=== PATIENT | male | born 1960 | race Caucasian/White ===

== ENCOUNTER 2023-03-09 17:39 | Outpatient (CLI) | payer MEDICAID, SELFPAY | END 2023-03-09 17:40 | disposition home or self-care (01) | LOC: AMB 03-27 03:16 | PROVIDERS: Visit Provider Emergency Medicine Emergency Medical Services | DX: S09.90XA Unspecified injury of head, initial encounter (principal); S49.91XA Unspecified injury of right shoulder and upper arm, initial encounter; V86.69XA Passenger of other special all-terrain or other off-road motor vehicle injured in nontraffic accident, initial encounter; Y92.046 Garden or yard of boarding-house as the place of occurrence of the external cause | CPT/HCPCS: A0425; A0429 ==

== ENCOUNTER 2023-03-09 18:06 | Emergency (ER) | payer MEDICAID, SELFPAY ==
[2023-03-09] VITALS (9 sets, daily range): BP systolic 131–147; BP diastolic 87–104; PULSE 95–114; RESP 14–16; TEMP 36.4; O2SAT 96–99
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
[2023-03-09 18:24] LABS: Basophils Absolute Auto 0.05 K/uL (0.00-0.30); Basophils Percent Auto 0.6 % (0.0-3.0); Eosinophils Absolute Auto 0.04 K/uL (0.00-0.50); Eosinophils Percent Auto 0.5 % (0.0-7.0); Hematocrit 44.8 % (37.0-53.0); Hemoglobin* 15.6 gm/dL (13.5-17.5); Immature Granulocytes Abs Auto 0.02 K/uL (0.00-0.30); Immature Granulocytes Pct Auto 0.2 %; Lymphocytes Absolute Auto 2.75 K/uL (0.90-2.90); Lymphocytes Percent Auto 34.1 % (20-44); Mean Corpuscular HGB Conc 35 gm/dL (32-36); Mean Corpuscular Hemoglobin 33 pg (26-34); Mean Corpuscular Volume 94 fL (80-100); Monocytes Percent Auto 6.5 % (0.0-11.0); Neutrophils Absolute Auto 4.68 K/uL (1.7-7.0); Neutrophils Percent Auto 58.1 % (42.0-72.0); Platelet Count* 314 K/uL (140-440); RDW Coefficient of Variation % 13.5 % (11.5-15.5); Red Blood Count 4.78 m/uL (4.30-5.90); White Blood Count* 8.06 K/uL (4.50-11.00)
[2023-03-09 18:25] LABS: Slide Review Reflex No
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
[2023-03-09 18:32] LABS: Chloride* 106 mmol/L (96-114)
[2023-03-09 18:33] LABS: Potassium* 4.1 mmol/L (3.6-5.1); Sodium* 141 mmol/L (135-149)
--- NOTE | 2023-03-09 18:35 | ED.NURSE ---
Wounds on pt R shoulder and elbow cleaned with gauze, sterile NS and wound cleanser spray.
[2023-03-09 18:36] LABS: Blood Urea Nitrogen* 11 mg/dL (7-30); Carbon Dioxide* 23 mmol/L (20-32); Creatinine* 1.1 mg/dL (0.5-1.5); Estimated Glomerular Filt Rate 77 ml/min; Ethanol* 0.22 % (0.01-0.03)
[2023-03-09 18:37] LABS: Calcium* 9.1 mg/dL (8.4-10.6); Glucose* 89 mg/dL (60-115)
--- NOTE | 2023-03-09 18:48 | ED.NURSE ---
Notable wounds on patient: Right Elbow and Forearm area - approximately [id number] area of multiple superficial abrasions Right side of head - 2 areas of laceration/abrasion. 1st area (inferior) laceration measuring approx 3cmx0.5cm and approx 1cm deep. 2nd area (superior) larger abrasion measuring approx 3.5cmx2.5cm, containing a laceration measuring approx 2cm long within the area of abrasion.
--- NOTE | 2023-03-09 18:50 | ED.NURSE ---
in for FAST exam.
--- NOTE | 2023-03-09 18:59 | ED.NURSE ---
PD in room for legal blood draw.
--- NOTE | 2023-03-09 19:08 | ED.NURSE ---
in room for lac repair with sutures.
--- NOTE | 2023-03-09 19:34 | ED.NURSE ---
Wounds on pt head cleaned with gauze, sterile NS, and wound cleanser spray. Dried blood cleaned off pt head/neck.
--- NOTE | 2023-03-09 19:43 | ED.NURSE ---
Pt offered dressings for wounds and abrasions. Pt declines any dressings at this time.
== END 2023-03-09 19:55 | disposition home or self-care (01) ==
PROVIDERS: Emergency Provider Emergency Medicine Emergency Medical Services
DX: S50.811A Abrasion of right forearm, initial encounter (principal); S01.01XA Laceration without foreign body of scalp, initial encounter; V86.59XA Driver of other special all-terrain or other off-road motor vehicle injured in nontraffic accident, initial encounter
CPT/HCPCS: 12013; 36415; 70450; 72125; 73090; 76604; 76705; 80048; 82077; 85025; 93005; 93308; 94761; 99284; 99291; G0390

== ENCOUNTER 2023-03-16 07:00 | Emergency (ER) | payer MEDICAID, SELFPAY ==
[2023-03-16 07:17] VITALS: BP 130/73; PULSE 87; TEMP 36.4; O2SAT 97; BMI 25.1
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
== END 2023-03-16 07:50 | disposition home or self-care (01) ==
LOC: ED 07:57
PROVIDERS: Emergency Provider Family Medicine
DX: Z48.02 Encounter for removal of sutures (principal)
CPT/HCPCS: 99282; 99283

== ENCOUNTER 2023-04-07 09:20 | Outpatient (CLI) | payer MEDICAID, SELFPAY | END 2023-04-07 09:21 | disposition home or self-care (01) | LOC: NFLDREF 09:22 | PROVIDERS: PCP Family Medicine; Visit Provider Family Medicine | DX: Z00.00 Encounter for general adult medical examination without abnormal findings (principal); R10.9 Unspecified abdominal pain; R53.1 Weakness | CPT/HCPCS: 80053 ==

== ENCOUNTER 2023-04-20 15:46 | Emergency (ER) | payer MEDICAID, SELFPAY ==
[2023-04-20] VITALS (24 sets, daily range): BP systolic 115–138; BP diastolic 71–112; PULSE 66–102; RESP 16–28; TEMP 36.4; O2SAT 90–98; BMI 25.5
--- NOTE | 2023-04-20 16:06 | CRLHL7_ITS ---
For Patients: As a result of the Century Cures Act, medical imaging exams and procedure reports are released immediately into your electronic medical record. You may view this report before your referring provider. If you have questions, please contact your health care provider. INDICATION: Shortness of breath. TECHNIQUE: CT chest pulmonary angiogram acquired with IV contrast, 95mL of Isovue 370. Coronal and sagittal reformats. COMPARISON: None available. FINDINGS: Central airways patent. Diffuse bronchial wall thickening. Right lower lobe calcified granuloma. No pneumothorax or pleural effusion. No pulmonary arterial filling defect identified. The thoracic aorta is patent and normal caliber without dissection. Normal cardiac size. No thoracic lymphadenopathy. Right perihilar small calcified nodes. The imaged upper abdomen demonstrates diffuse hepatic steatosis. No suspicious osseous lesion. IMPRESSION: 1. No evidence of acute PE. 2. Diffuse bronchial wall thickening is nonspecific but may be seen with bronchitis or small airways disease. 3. Diffuse hepatic steatosis. Dictated by Stan Matson MD @ 04/20/2023 6:38:51 PM Please note that all CT scans at this facility use dose modulation, iterative reconstruction, and/or weight-based dosing when appropriate to reduce radiation dose to as low as reasonably achievable. Dictated by: Stan Matson MD @ 04/20/2023 18:38:56 (Electronically Signed)
--- NOTE | 2023-04-20 16:08 | CRLHL7_ITS ---
For Patients: As a result of the Century Cures Act, medical imaging exams and procedure reports are released immediately into your electronic medical record. You may view this report before your referring provider. If you have questions, please contact your health care provider. INDICATION: Pain. TECHNIQUE: Lumbar spine 3 view. COMPARISON: None. FINDINGS/IMPRESSION: Bones: Alignment is normal. No fractures. Joints: Multilevel disc space height loss predominantly at L4-L5 and L5-S1. Multilevel facet arthropathy also at L4-L5 and L5-S1 predominantly. Soft tissues: Unremarkable. Dictated by Patrick Zapata MD @ 04/20/2023 6:27:30 PM (Electronically Signed)
--- NOTE | 2023-04-20 16:09 | ED_ITS ---
HPI - General Adult General Time Seen by Provider: 16:09 Date Seen: 04/20/23 Chief complaint: Weakness Stated complaint: pain in left leg, trouble breathing Time Seen by Provider: 04/20/23 15:48 Source: patient Mode of arrival: wheelchair Limitations: no limitations History of Present Illness HPI narrative: Patient is a 62-year-old white male alcoholic who presents with sudden onset of left leg pain but also bilateral leg tingling. The patient also reports that he felt short of breath although his O2 sat here is excellent. He reports he has been drinking Tequila today. He typically drinks 3/4-1 bottle of Tequila a day. He states ?I am an alcoholic?. He has no abdominal pain he has been taking liquids and eating. The patient has had a past history of COPD as well. He continues to smoke. He reports no swelling of significance in his leg, and reports that both of them is been ?twitching?. He really denies any back pain, no fevers chills perineal numbness or bowel or bladder symptoms. Related Data Previous Rx's Medication Instructions Recorded albuterol sulfate 90 mcg/actuation 2 puff inhalation Q4-6H PRN 04/07/23 aerosol inhaler shortness of breath or wheezing #8.5 grams peg 3350-electrolytes 236 240 ml PO Q10M #4,000 mL 04/07/23 gram-22.74 gram-6.74 gram-5.86 gram solution (Golytely) tiotropium bromide 18 mcg capsule 1 cap inhalation QDAY #90 04/07/23 with inhalation device (Spiriva inhalations with HandiHaler) diazepam 10 mg tablet 10 mg PO QID #10 tabs 04/17/23 Allergies Allergy/AdvReac Type Severity Reaction Status Date / Time No Known Drug Allergies Allergy Verified 04/17/23 07:13 Review of Systems Status of ROS: Reports: 6 or more systems reviewed and unremarkable except as noted in History and below PFSH PFS Surgical History History of ankle surgery ?Z98.890 - Other specified postprocedural states (ICD-10) Social History Smoking Status: Current every day smoker What tobacco products do you use: cigarettes Smoking packs per day: 1 Smoking cigarettes per day: 20.0 Years smoked: 46 Smoking pack-years: 46.00 Do you use any of these nicotine containing products: None Second hand tobacco smoke exposure: No How often do you have a drink containing alcohol: 4 or more times a week How many standard drinks containing alcohol do you have on a typical day: 7 to 9 How often do you have six or more drinks on one occasion: Daily or almost daily AUDIT-C Alcohol total score: 11 Non-prescribed substance use: marijuana (any form) Little interest or pleasure in doing things: more than half the days Feeling down, depressed, or hopeless: several days service: No Exam Narrative: Exam Narrative: Objective: Patient's vital signs look largely unremarkable he is alert orient x3, smells of smoke and alcohol HEENT is unremarkable no scleral icterus mouth clear neck is supple chest is clear Heart rhythm regular heart murmur Abdomen benign soft nontender Back exam is unremarkable Lower extremities show full range of motion of the legs normal sensation, no swelling, negative Homans sign Distal CMS is intact in his lower and upper extremities Const: Vital Signs, click to edit/add: Vital Signs - 24 hr 04/20/23 15:53 04/20/23 16:02 04/20/23 16:03 Temperature 97.6 F Pulse Rate 96 90 Pulse Rate [Right Pulse Oximeter] 102 H Respiratory Rate 28 H Blood Pressure 138/105 H Blood Pressure [Ri ght Upper Arm] 133/84 Pulse Oximetry 98 98 97 Oxygen Delivery Me thod Room Air 04/20/23 16:12 04/20/23 16:15 04/20/23 16:30 Temperature Pulse Rate 80 82 Pulse Rate [Right Pulse Oximeter] Respiratory Rate Blood Pressure Blood Pressure [Ri ght Upper Arm] Pulse Oximetry 97 96 96 Oxygen Delivery Me thod 04/20/23 16:30 04/20/23 16:32 04/20/23 16:45 Temperature Pulse Rate 81 66 Pulse Rate [Right Pulse Oximeter] Respiratory Rate 16 Blood Pressure 128/96 H Blood Pressure [Ri ght Upper Arm] Pulse Oximetry 96 91 Oxygen Delivery Me thod 04/20/23 17:00 04/20/23 17:02 04/20/23 17:03 Temperature Pulse Rate 77 77 78 Pulse Rate [Right Pulse Oximeter] Respiratory Rate Blood Pressure 122/73 Blood Pressure [Ri ght Upper Arm] Pulse Oximetry 90 90 Oxygen Delivery Me thod 04/20/23 17:26 04/20/23 17:30 04/20/23 17:32 Temperature Pulse Rate 79 74 76 Pulse Rate [Right Pulse Oximeter] Respiratory Rate Blood Pressure 116/71 Blood Pressure [Ri ght Upper Arm] Pulse Oximetry 96 93 91 Oxygen Delivery Me thod 04/20/23 17:33 04/20/23 17:45 04/20/23 18:00 Temperature Pulse Rate 78 77 77 Pulse Rate [Right Pulse Oximeter] Respiratory Rate Blood Pressure Blood Pressure [Ri ght Upper Arm] Pulse Oximetry 92 92 92 Oxygen Delivery Me thod 04/20/23 18:02 04/20/23 18:18 04/20/23 18:30 Temperature Pulse Rate 75 81 Pulse Rate [Right Pulse Oximeter] Respiratory Rate Blood Pressure 125/112 H Blood Pressure [Ri ght Upper Arm] Pulse Oximetry 95 91 Oxygen Delivery Me thod 04/20/23 18:32 04/20/23 18:45 04/20/23 19:00 Temperature Pulse Rate 66 74 88 Pulse Rate [Right Pulse Oximeter] Respiratory Rate Blood Pressure 115/72 Blood Pressure [Ri ght Upper Arm] Pulse Oximetry 91 94 94 Oxygen Delivery Me thod 04/20/23 19:02 Temperature Pulse Rate 84 Pulse Rate [Right Pulse Oximeter] Respiratory Rate Blood Pressure 127/80 Blood Pressure [Ri ght Upper Arm] Pulse Oximetry 95 Oxygen Delivery Me thod Course Vital Signs Vital signs: Initial Vital Signs Temperature 97.6 F 04/20/23 15:53 Temperature Source Temporal Artery Scan 04/20/23 15:53 Pulse Rate 102 H 04/20/23 15:53 Respiratory Rate 28 H 04/20/23 15:53 Blood Pressure 133/84 04/20/23 15:53 Blood Pressure Mean 100 04/20/23 15:53 Blood Pressure Position Sitting 04/20/23 15:53 Pulse Oximetry 98 04/20/23 15:53 Oxygen Delivery Method Room Air 04/20/23 15:53 Vital Signs Temperature 97.6 F 04/20/23 15:53 Pulse Rate 102 H 04/20/23 15:53 Respiratory Rate 28 H 04/20/23 15:53 Blood Pressure 133/84 04/20/23 15:53 Pulse Oximetry 98 04/20/23 15:53 Oxygen Delivery Method Room Air 04/20/23 15:53 Temperature 97.6 F 04/20/23 15:53 Pulse Rate 84 04/20/23 19:02 Respiratory Rate 16 04/20/23 16:30 Blood Pressure 127/80 04/20/23 19:02 Pulse Oximetry 95 04/20/23 19:02 Oxygen Delivery Method Room Air 04/20/23 15:53 Medical Decision Making MDM Narrative Medical decision making narrative: [age] year white male alcoholic with alcohol intoxication, sudden onset of pain in his left leg and some tingling in both legs. No evidence of cauda equina syndrome or bowel or bladder dysfunction. The patient also reports he had transient shortness of breath. I think at this point to be reasonable to get a EKG, troponin, lab studies, CT scan of the chest rule out PE or other pneumonic process, would also get a D-dimer and if it is positive get a Doppler scan of his lower extremities. He does not have any swelling of lower extremities on common have a clot in that setting such as a DVT. Will give him some Ativan to help calm him as he is somewhat agitated. Given he has been drinking at all think he is going through withdrawal. Disposition pending findings above. Addendum: 7:00 p.m.: He has a negative chest CT by Radiology read for PE. He has some diffuse bronchial wall thickening this nonspecific. Patient is a smoker. Patient has negative Doppler scans of both lower extremities, and a reassuring lumbar x-ray other than lumbar spondylosis. A month certain of the etiology of his sharp pain in his leg. He does not have seemed to have persistent pain, which would be typical for radiculitis, and he certainly could have just had muscle spasm or muscular pain. Would recommend anti-inflammatory such as Aleve or Advil. Recommend follow up with regular doctor the next 4-5 days. Recommend he cut back and stop his drinking. He has spouse were in agreement with the plan. Patient does have alcohol intoxication his will drive him home, and he has no further leg pain or shortness of breath at this time. His hemodynamics and monitoring of been stable. Lab Data Labs: Lab Results 04/20/23 Range/Units 16:20 WBC 6.43 (4.50-11.00) K/uL RBC 4.17 L (4.30-5.90) m/uL Hgb 14.0 (13.5-17.5) gm/dL Hct 40.3 (37.0-53.0) % MCV 97 (80-100) fL MCH 34 (26-34) pg MCHC 35 (32-36) gm/dL RDW Coeff of Elise 14.0 (11.5-15.5) % Plt Count 237 (140-440) K/uL Neut % (Auto) 55.5 (42.0-72.0) % Lymph % (Auto) 32.5 (20-44) % Will % (Auto) 10.1 (0.0-11.0) % Eos % (Auto) 0.6 (0.0-7.0) % Baso % (Auto) 0.8 (0.0-3.0) % Neut # (Auto) 3.57 (1.7-7.0) K/uL Lymph # (Auto) 2.09 (0.90-2.90) K/uL Will # (Auto) 0.60 (0.00-0.90) K/UL Eos # (Auto) 0.04 (0.00-0.50) K/uL Baso # (Auto) 0.05 (0.00-0.30) K/uL D-Dimer Quant (PE/DVT) 0.63 H (0.00-0.50) ug/ml Sodium 138 (135-149) mmol/L Potassium 3.6 (3.6-5.1) mmol/L Chloride 105 (96-114) mmol/L Carbon Dioxide 20 (20-32) mmol/L BUN 9 (7-30) mg/dL Creatinine 0.8 (0.5-1.5) mg/dL Estimated Creat Clear 95.00 Estimated GFR 101 ml/min Glucose 84 (60-115) mg/dL Calcium 8.9 (8.4-10.6) mg/dL Total Bilirubin 0.6 (0.1-1.5) mg/dL Direct Bilirubin 0.1 (0.0-0.5) mg/dL AST 277 H (12-35) U/L ALT 159 H (4-50) U/L Alkaline Phosphatase 96 (40-150) U/L Troponin I < 0.01 L (0.01-0.04) ng/mL C-Reactive Protein < 0.5 L (0.5-1.0) mg/dL NT-Pro-B Natriuret Pep 80 pg/mL Total Protein 6.8 (6.0-8.3) g/dL Albumin 2.3 L (3.3-5.0) g/dL Amylase 74 (18-89) U/L Ethyl Alcohol 0.18 H (0.01-0.03) % Discharge Plan Discharge Clinical Impression: Breath shortness, Alcohol intoxication, Arthralgia of both lower legs Patient Disposition: Home w/ Parent or Adult Condition: Improved Additional Instructions: Your studies in the emergency department today were largely unremarkable, would recommend that you cut back on your drinking or seek help to stop drinking. Would recommend you use some ibuprofen or Aleve for youDiscomfort in your leg. Recheck with your regular doctor in the next 3-5 days for reassessment of how you are doing. Return to the emergency department as needed. Activity Level: Light activity Discharge Diet: Regular Prescriptions: No Action diazepam 10 mg tablet 10 mg PO QID Qty: 10 0RF Rx Instructions: Day #1(1 tab every 6 hrs or 4 doses), day #2 (1 tab every 8 hrs or 3 doses), day #3 (1 tab every 12 hrs or 2 doses), day #4 (1 tab at bedtime). albuterol sulfate 90 mcg/actuation HFA aerosol inhaler 2 puff inhalation Q4-6H PRN (Reason: shortness of breath or wheezing) Qty: 8.5 3RF Spiriva with HandiHaler 18 mcg capsule, w/inhalation device 1 cap inhalation QDAY Qty: 90 11RF Rx Instructions: puncture 1 cap using device; one dose = 2 inhalations peg 3350-electrolytes [Golytely] 236-22.74-6.74 -5.86 gram recon soln 240 ml PO Q10M Qty: 4000 0RF Rx Instructions: until fecal effluent is clear Follow Up/Referrals: Hong Lima MD [Primary Care Provider] - Stand Alone Forms: [employer] Info Instructions
[2023-04-20] MEDS: 0.9 % SODIUM CHLORIDE 1000 ml 1,000 ML 6000 ML IV (16:20)
[2023-04-20 16:26] LABS: Basophils Absolute Auto 0.05 K/uL (0.00-0.30); Basophils Percent Auto 0.8 % (0.0-3.0); Eosinophils Absolute Auto 0.04 K/uL (0.00-0.50); Eosinophils Percent Auto 0.6 % (0.0-7.0); Hematocrit 40.3 % (37.0-53.0); Immature Granulocytes Abs Auto 0.03 K/uL (0.00-0.30); Immature Granulocytes Pct Auto 0.5 %; Lymphocytes Absolute Auto 2.09 K/uL (0.90-2.90); Lymphocytes Percent Auto 32.5 % (20-44); Mean Corpuscular HGB Conc 35 gm/dL (32-36); Mean Corpuscular Hemoglobin 34 pg (26-34); Mean Corpuscular Volume 97 fL (80-100); Monocytes Percent Auto 10.1 % (0.0-11.0); Neutrophils Absolute Auto 3.57 K/uL (1.7-7.0); Neutrophils Percent Auto 55.5 % (42.0-72.0); Platelet Count* 237 K/uL (140-440); Red Blood Count 4.17 m/uL (4.30-5.90); White Blood Count* 6.43 K/uL (4.50-11.00)
[2023-04-20] MEDS: ASPIRIN 81 MG TAB.CHEW 324 MG PO (16:27)
[2023-04-20] MEDS: LORazepam 2 MG/ML inj 1 MG IVP (16:28)
[2023-04-20 16:30] LABS: Slide Review Reflex No
[2023-04-20 16:39] LABS: Albumin* 2.3 g/dL (3.3-5.0); Chloride* 105 mmol/L (96-114); Sodium* 138 mmol/L (135-149)
[2023-04-20 16:41] LABS: Potassium* 3.6 mmol/L (3.6-5.1)
[2023-04-20 16:42] LABS: Amylase* 74 U/L (18-89)
[2023-04-20 16:43] LABS: Alanine Aminotransferase* 159 U/L (4-50); Alkaline Phosphatase* 96 U/L (40-150); Aspartate Amino Transferase* 277 U/L (12-35); Bilirubin Direct* 0.1 mg/dL (0.0-0.5); Bilirubin Total* 0.6 mg/dL (0.1-1.5); Blood Urea Nitrogen* 9 mg/dL (7-30); Carbon Dioxide* 20 mmol/L (20-32); Creatinine* 0.8 mg/dL (0.5-1.5); Estimated Glomerular Filt Rate 101 ml/min; Glucose* 84 mg/dL (60-115); Total Protein* 6.8 g/dL (6.0-8.3)
[2023-04-20 16:44] LABS: Calcium* 8.9 mg/dL (8.4-10.6); D Dimer Quantitative* 0.63 ug/ml (0.00-0.50); Ethanol* 0.18 % (0.01-0.03)
[2023-04-20 16:55] LABS: C Reactive Protein* < 0.5 mg/dL (0.5-1.0); NT Pro B Type NatriureticPept* 80 pg/mL; Troponin I* < 0.01 ng/mL (0.01-0.04)
--- NOTE | 2023-04-20 17:04 | CRLHL7_ITS ---
For Patients: As a result of the Cures Act, medical imaging exams and procedure reports are released immediately into your electronic medical record. You may view this report before your referring provider. If you have questions, please contact your health care provider. INDICATION: Bilateral leg pain and swelling. TECHNIQUE: Bilateral lower extremity duplex venous ultrasound utilizing grayscale imaging to assess compressibility as well as color and spectral Doppler sonography. COMPARISON: None. FINDINGS: RIGHT Lower Extremity Common femoral vein: Fully compressible with patent internal flow. Femoral vein: Fully compressible with patent internal flow. Popliteal vein: Fully compressible with patent internal flow. Posterior tibial veins: Fully compressible with patent internal flow. Peroneal veins: Fully compressible with patent internal flow. Other: Negative. LEFT Lower Extremity Common femoral vein: Fully compressible with patent internal flow. Femoral vein: Fully compressible with patent internal flow. Popliteal vein: Fully compressible with patent internal flow. Posterior tibial veins: Fully compressible with patent internal flow. Peroneal veins: Fully compressible with patent internal flow. Other: Negative. IMPRESSION: No evidence of DVT in the bilateral lower extremities. Dictated by Stan Matson MD @ 04/20/2023 7:22:32 PM Dictated by: Stan Matson MD @ 04/20/2023 19:22:38 (Electronically Signed)
--- NOTE | 2023-04-20 17:26 | ED.NURSE ---
has been resting feeling much better. pain in left leg~4-5.
== END 2023-04-20 19:17 | disposition home or self-care (01) ==
PROVIDERS: Emergency Provider Family Medicine; PCP Family Medicine
DX: M25.59 Pain in other specified joint (principal); M79.662 Pain in left lower leg; M79.661 Pain in right lower leg; F10.129 Alcohol abuse with intoxication, unspecified; R06.02 Shortness of breath
CPT/HCPCS: 36415; 71260; 72100; 80048; 80076; 82077; 82150; 83880; 84484; 85025; 85379; 86140; 93005; 93970; 94761; 96374; 99284; 99285; A9270; J2060; J7030; Q9967

== ENCOUNTER 2023-04-24 11:31 | Outpatient (CLI) | payer MEDICAID, SELFPAY ==
--- NOTE | 2023-04-24 13:57 | W.ANESCHARGE ---
Anesthesia Charges Start Date/Time Anesthesia Start Date: 04/24/23 Anesthesia Start Time: 13:00 Stop Date/Time Anesthesia Stop Date: 04/24/23 Anesthesia Stop Time: 13:46
== END 2023-04-24 11:32 | disposition home or self-care (01) ==
LOC: OP CLINIC 11:32
PROVIDERS: PCP Family Medicine; Visit Provider Surgery
DX: R10.84 Generalized abdominal pain (principal); K31.89 Other diseases of stomach and duodenum; K63.5 Polyp of colon; K62.89 Other specified diseases of anus and rectum
CPT/HCPCS: 00813; 43239; 45385; 88305; J1200; J2250; J2704; J3010; J3490